=== PATIENT | male | born 1985 | race Caucasian/White ===

== ENCOUNTER 2024-05-29 05:42 | Emergency (ER) | payer BC, SELFPAY ==
[2024-05-29 05:47] VITALS: BP 147/93
[2024-05-29 06:58] LABS: % Basophils 0.7 % (0-2); % Immature Granulocytes 0.1 % (0-0.5); % Lymphocytes 28.5 % (20.5-51.1); % Monocytes 14.3 % (1.7-9.3); % Neutrophils 53.4 % (42.2-75.2); Absolute Basophils 0.1 10^3/uL (0-0.2); Absolute Eosinophils 0.2 10^3/uL (0-0.7); Absolute Lymphocytes 2.1 10^3/uL (1.2-3.4); Absolute Neutrophils 3.9 10^3/uL (1.4-6.5); Hemoglobin 14.6 g/dL (13.0-18.0); Mean Corp Hgb Conc. 35.6 g/dL (33.0-37.0); Mean Corpuscular Hgb 29.1 pg (27.0-31.0); Mean Corpuscular Volume 81.8 fL (80.0-94.0); Mean Platelet Volume 9.2 fL (7.4-10.4); Nucleated Red Blood Cells % 0 % (-); Platelet Count 202 10^3/uL (130-400); Red Blood Cell Count 5.01 10^6/uL (4.70-6.10); Red Cell Dist. Width 12.9 % (11.5-14.5); White Blood Cell Count 7.3 10^3/uL (4.8-10.8)
--- NOTE | 2024-05-29 07:09 | ED.MUSCINJ ---
HPI-Injury
General
Chief Complaint: Musculo-Skeletal Complaint
Source: patient
Exam Limitations: none
Time Seen by Provider: 05/29/24 06:02
Nursing documentation reviewed up to this point in time: agreed with
History of Present Illness-Injury
Is this injury a work related problem?: No
Is pt an associate of [facility]/[place]?: No
Initial Injury comments:
38-year-old male presents emergency room complaining of right fifth finger pain intermittent for the past 1 to 2 months. It became worse over the past 2 days. He noticed it was hard to extend his right fifth finger. He denies any bite, infection
or puncture wound.
Past History
Past History
ED Past Medical History: HTN and Hypercholesterolemia
ED Past Surgical History: None
Social History
Tobacco: Non-smoker
Alcohol: None
Drug: None
Living: with family
Employment: Employed
Review of Systems
Review of Systems
Allergies reviewed?: Yes
All Other Systems: Not applicable
Constitutional: Reports no symptoms
EENT: Reports no symptoms
Respiratory: Reports no symptoms
Cardiac: Reports no symptoms
ABD/GI: Reports no symptoms
: Reports no symptoms
Musculoskeletal: Reports joint pain
Skin: Reports no symptoms
Neurological: Reports no symptoms
Endocrine: Reports no symptoms
Hematologic/Lymphatic: Reports no symptoms
Psychiatric: Reports no symptoms
Phy Exam
Physical Exam
Physical Exam:
Physical Exam
General: no apparent distress, not acutely ill
Neck: supple. no meningeal signs.
Heart: s1/s2 regular rate and rhythm, no murmur. equal radial
pulses.
HEENT: EOMI
Lungs: no acute respiratory distress.
Abdomen: Nondistended
Neuro: alert and oriented. no focal neurological deficits ambulates without difficulty
Skin: no rash
Psychiatric: well kept. interactive and cooperative
Extremities: no edema. no calf tenderness. negative homans. good distal pulses, right fifth finger held in minimal flexion, mild tenderness at right fifth MCP
Injury Course
Orders/Labs/Results
Orders:
Orders
05/29/24 05:53
CR Hand - Right Min 3 Views Urgent
Comment: 5th finger joint
Reason For Exam: pain swelling
05/29/24 06:51
CRP [C-Reactive Protein] Urgent
Complete Blood Count/With Diff Urgent
Comprehensive Metabolic Panel Urgent
ESR [Erythrocyte Sed Rate] Urgent
05/29/24 07:43
IV Insert/Care/Rem.- Treatment PRN
05/29/24 07:45
CefTRIAXone [Rocephin] 2,000 mg IV NOW STA
05/29/24 07:53
Sterile Water [Sterile Water For Injection] 20 ml .ROUTE .STK-MED
05/29/24 08:14
Ketorolac [Toradol] 15 mg IM NOW STA
Abnormal Lab Results
05/29/24
06:51
Absolute Monos (auto) 1.0 H 10^3/uL
(0.1-0.6)
Monocytes % 14.3 H %
(1.7-9.3)
05/29/24 06:51
05/29/24 06:51
MDM/Problems Addressed
Differential Diagnosis Includes:
Flexor tenosynovitis, flexor tendon injury
MDM/Problems Addressed:
38-year-old male with left fifth finger pain, likely injury to flexor tendon. Discussed with Dr. Perez, who recommends IV Rocephin and oral Bactrim. Follow-up in office. Suspect this is more likely a flexor tendon injury than infection.
*Radiology
Radiology exam reviewed: preliminary read by ED provider (Right hand x-ray normal)
*Pulse Oximetry
Patient hypoxic: no
*Critical Care Note
Total Time (30-74mins, 75-104mins- exclusive of procedures): Not Applicable
Patient Management
Social determinants of health affecting care: Living situation
Discussion with other providers: Security And Compliance Project Manager (Orthopedics)
Escalation/DeEscalation of care consider admission/obs:
Admit considered, but not indicated
ED Attending Note
-
Portions of this chart may have been created with voice recognition software.� Occasional wrong word or��sound alike� substitutions may have occurred due to the inherent limitations of voice recognition software.
Discharge Plan
Departure
Patient Disposition: Home (Routine Discharge)
Date of Disposition: 05/29/24
Time of Disposition: 07:47
Patient with high blood pressure during this ER visit?: Yes
Condition: Good
Discharge Problem:
Hand pain, right
Instructions: Common finger injuries, BLOOD PRESSURE
Prescriptions:
New
sulfamethoxazole-trimethoprim [Bactrim DS] 800-160 mg tablet
1 tab PO BID Qty: 14 0RF
Referrals:
Jay Borges MD [Family Provider] -
Victor M Perez MD [Active] - Call in 1-3 days for appt
Activity Restrictions/Additional Instructions:
Return for any fevers or chills, or other concerns. Follow-up with Dr. Perez, hand surgeon on Friday.
Interventions
Interventions:
*Risk Screen - Suicide Last Done: 05/29/24 05:47
*General Assessment Last Done: 05/29/24 05:47
*Neglect/Abuse Screening Last Done: 05/29/24 05:47
ED- Fall Risk Assessment Last Done: 05/29/24 07:31
*ED COVID-19 Vaccine History Last Done: 05/29/24 07:31
*Nursing Disposition Last Done: 05/29/24 08:20
ED-Musculoskeletal Assessment Last Done: 05/29/24 06:25
Discharge Date and Time
Discharge Date/Time: 05/29/24 08:22
Print Language: INDONESIAN
[2024-05-29 07:11] LABS: Carbon Dioxide 26 mmol/L (22-30)
[2024-05-29 07:14] LABS: C-Reactive Protein < 5.00 mg/L (0.0-10.00)
[2024-05-29 07:23] LABS: ALT (SGPT) 30 U/L (0-50); AST (SGOT) 28 U/L (17-59); Albumin 4.5 g/dl (3.5-5.0); Alkaline Phosphatase 38 U/L (38-126); Blood Urea Nitrogen 15 mg/dl (9-20); Calcium 9.3 mg/dl (8.4-10.2); Chloride 103 mmol/L (98-107); Glucose 98 mg/dl (70-99); Potassium 4.3 mmol/L (3.5-5.1); Sodium 140 mmol/L (135-145); Total Bilirubin 0.8 mg/dl (0.2-1.3); eGFR > 60.00
[2024-05-29 07:29] VITALS: BP 131/91
[2024-05-29 07:43] LABS: Erythrocyte Sed Rate 8 mm/hour (0-20)
[2024-05-29] MEDS: ROCEPHIN 2000 MG IV (07:53)
[2024-05-29 08:20] VITALS: BP 166/88
== END 2024-05-29 08:22 | disposition home or self-care (01) ==
LOC: EMR 05:42
PROVIDERS: EMERGENCY PHYSICIAN Emergency Medicine; FAMILY PHYSICIAN Internal Medicine
DX: M79.641 Pain in right hand (principal); M79.89 Other specified soft tissue disorders; I10 Essential (primary) hypertension; E78.00 Pure hypercholesterolemia, unspecified
CPT/HCPCS: 99284; 96374; 29130; 73130; 80053; 85025; 85652; 86140